=== PATIENT | female | born 1930 | race Caucasian/White ===

== ENCOUNTER 2021-02-23 17:05 | Emergency (ER) | payer MEDICARE, OTHER ==
[2021-02-23] MEDS ORDERED: Norepinephrine 8 MG/0.9% NS 250 ML ONE (17:35)
[2021-02-23] MEDS ORDERED: Cefepime 2 GM in Sodium Chloride 0.9% 100 ML IVPB SCH (18:00)
[2021-02-23] MEDS ORDERED: Vancomycin 1.5 GRAM/300 ML BAG 1.5 GM in Premix Bag 1 BAG IVPB SCH (18:00)
[2021-02-23] MEDS ORDERED: Cefepime 2 GM VIAL ONE (18:06)
[2021-02-23 18:10] LABS: Hemoglobin 5.6 g/dL (12.0-16.0); Mean Corpuscular HGB CONC 31.7 g/dL (32.0-36.0); Mean Corpuscular Hemoglobin 29.7 pg (27.0-31.0); Mean Corpuscular Volume 93.6 fL (78.0-98.0); Mean Platelet Volume 9.7 fL (7.4-10.4); Platelet Count 128 thou/uL (130-400); RBC Distribution Width 16.3 % (11.5-14.5); Red Blood Cell (RBC) Count 1.88 mill/uL (4.20-5.40); White Blood Cell (WBC) Count 0.4 thou/uL (4.8-10.8)
[2021-02-23 18:17] LABS: Magnesium 3.6 mg/dL (1.6-2.6)
[2021-02-23 18:24] LABS: ALT (SGPT) 8 U/L (8-55); AST (SGOT) 10 U/L (5-34); Albumin 1.9 g/dL (3.4-4.8); Alkaline Phosphatase 78 U/L (40-110); Anion Gap 25 mmol/L (10-20); BUN (Urea Nitrogen) 59 mg/dL (9.8-20.1); Bilirubin, Total 0.3 mg/dL (0.2-1.2); CK (CPK) 24 U/L (29-168); Calc. Creatinine Clearance 0 mL/min (70-130); Calcium 7.1 mg/dL (7.8-10.44); Chloride 112 mmol/L (98-107); Globulin 2.3 g/dL (2.4-3.5); Glucose 103 mg/dL (83-110); Lipase 65 U/L (8-78); Potassium 4.7 mmol/L (3.5-5.1); Protein, Total 4.2 g/dL (5.8-8.1); Sodium 141 mmol/L (136-145)
[2021-02-23 18:26] LABS: Reflex for Review?? NO
[2021-02-23 18:34] LABS: INR-International Normal Ratio 2.1; Prothrombin Time 23.8 sec (12.0-14.7)
[2021-02-23 18:35] LABS: PTT 40.3 sec (22.9-36.1)
[2021-02-23 18:36] LABS: Carbon Dioxide 9 mmol/L (23-31)
[2021-02-23 18:41] LABS: CKMB 1.7 ng/mL (0-6.6)
[2021-02-23] MEDS ORDERED: Sodium Bicarb 50 MEQ/50 ML Abboject 8.4% SYRINGE ONE (18:49)
[2021-02-23] MEDS ORDERED: Calcium Chloride 1 GM/10 ML Abboject SYRINGE ONE (18:49)
[2021-02-23 19:36] LABS: SARS-CoV-2 NAA Rapid Test Not Detected (NotDetected)
== END 2021-02-23 19:17 | disposition expired ==
LOC: ERS 17:05
DX: A41.9 Sepsis, unspecified organism (principal); R65.21 Severe sepsis with septic shock; J96.90 Respiratory failure, unspecified, unspecified whether with hypoxia or hypercapnia; D64.9 Anemia, unspecified; Z20.822 Contact with and (suspected) exposure to COVID-19; J44.9 Chronic obstructive pulmonary disease, unspecified; M81.0 Age-related osteoporosis without current pathological fracture; K21.9 Gastro-esophageal reflux disease without esophagitis; E03.9 Hypothyroidism, unspecified; Z79.899 Other long term (current) drug therapy
CPT/HCPCS: 71045; 73590 ×2; 80053; 82550; 82553; 83605; 83690; 83735; 83880; 84484; 85025; 85610; 85730; 86850; 86900; 86901; 86902; 86920; 86922; 87040; 87077; 87186; 93923; U0002; 36556; 96365; 96368; 96375; J0692; J3370